=== PATIENT | female | born 1965 | race African-American/Black ===

== ENCOUNTER 2017-05-30 13:34 | Emergency (ER) | payer OTHER ==
[2017-05-30 13:37] VITALS: BP 134/82; PULSE 77; TEMP 98; BMI 32.1
[2017-05-30] MEDS ORDERED: SODIUM CHLORIDE 1,000 ML IV STA (14:05)
[2017-05-30] MEDS ORDERED: KETOROLAC TROMETHAMINE 30 MG/1 ML VIAL IVPUSH ONE (14:05)
--- NOTE | 2017-05-30 14:13 | PDOC ---
History of Present Illness - General Chief Complaint: Pain Stated Complaint: LT SIDE PAIN Time Seen by Provider: 05/30/17 13:41 History Source: Patient - History of Present Illness Timing/Duration: reports: constant, getting worse Quality: reports: severe Abdominal Pain Onset Location: reports: flank Pain Radiation: reports: no radiation Past History - Past Medical History Allergies/Adverse Reactions: Allergies Allergy/AdvReac Type Severity Reaction Status Date / Time peanut Allergy Verified 05/30/17 13:38 shellfish derived Allergy Verified 05/30/17 13:38 Home Medications: Ambulatory Orders Ibuprofen [Motrin -] 600 mg PO QID #28 tablet 05/30/17 Tramadol HCl 50 mg PO Q6H #10 tablet MDD 200mg 05/30/17 Kidney Stones: Yes - Suicide/Smoking/Psychosocial Hx Smoking Status: No Smoking History: Never smoked Number of Cigarettes Smoked Daily: 0 Hx Alcohol Use: No Drug/Substance Use Hx: No Substance Use Type: None Review of Systems - Review of Systems Constitutional: No: Chills, Fever ABD/GI: No: Nausea, Vomiting : Yes: Flank Pain. No: Dysuria, Hematuria *Physical Exam - Vital Signs Last Vital Signs Temp Pulse Resp BP Pulse Ox 98.0 F 77 20 134/82 100 05/30/17 13:34 05/30/17 13:34 05/30/17 13:34 05/30/17 13:34 05/30/17 13:34 - Physical Exam General Appearance: Yes: Appropriately Dressed. No: Apparent Distress HEENT: positive: Normal Voice Neck: positive: Supple Respiratory/Chest: negative: Respiratory Distress Gastrointestinal/Abdominal: positive: Normal Bowel Sounds, Tender (to L flank, no overt CVST, no tenderness to abd otherwise), Soft. negative: Distended, Guarding, Rebound Musculoskeletal: negative: CVA Tenderness Extremity: positive: Normal Inspection Integumentary: positive: Dry, Warm Neurologic: positive: Fully Oriented, Alert, Normal Mood/Affect ED Treatment Course - LABORATORY CBC & Chemistry Diagram: 05/30/17 14:20 05/30/17 14:18 - RADIOLOGY Radiology Studies Ordered: Category Date Time Status ABDOMEN & PELVIS CT W/O CONTR [CT] Stat CT Scan 05/30/17 14:05 Ordered Medical Decision Making - Medical Decision Making 05/30/17 14:11 82-year-old female, history of kidney stones, no surgeries, here with L lower back pain radiating to L flank that started yesterday and is severe. No dysuria , hematuria, nausea, vomiting, fever or chills. States current symptoms similar to previous stone. See exam Renal colic -pain control -IVF -labs -CT 05/30/17 15:56 CT read as 4 mm non-obstructing right renal stone, however no stone seen to left renal collecting system or ureter. Pt improved w/ meds. L flank pain possibly MSK in nature as no stone seen on the L. Labs and UA unremarkable. Dc w / pain control and PMD f/u 05/30/17 15:56 05/30/17 16:07 05/30/17 16:09 *DC/Admit/Observation/Transfer Diagnosis at time of Disposition: Left flank pain - Discharge Dispostion Disposition: HOME Condition at time of disposition: Improved - Prescriptions Prescriptions: Ibuprofen [Motrin -] 600 mg PO QID #28 tablet Tramadol HCl 50 mg PO Q6H #10 tablet MDD 200mg - Referrals Referrals: Sendy Galeas [Primary Care Provider] - - Patient Instructions Additional Instructions: The cause of your left side pain is unclear at this time, but could possibly be muscular. The CT did not show any stones on your left side. There is only a 4 mm stone in your right kidney, which given its location, should not be causing pain. Your labs and urine were normal. Take medication as prescribed for pain as needed and follow-up with your PMD
[2017-05-30] MEDS ORDERED: KETOROLAC TROMETHAMINE 30 MG/1 ML VIAL ONE (14:23)
[2017-05-30 14:27] LABS: BASOPHIL 1.2 % (0-2.0); EOSINOPHIL 5.3 % (0-4.5); MCH 27.6 pg (25.7-33.7); MCHC 33.7 g/dl (32.0-36.0); MEAN CELL VOLUME 81.8 fl (80-96); MEAN PLT VOLUME 7.6 fl (7.5-11.1); NEUTROPHILS 66.8 % (42.8-82.8); PLATELET COUNT 330 K/MM3 (134-434); RDW 13.1 % (11.6-15.6)
[2017-05-30 14:28] LABS: URINE APPEARANCE CLEAR; URINE BILIRUBIN NEGATIVE (NEGATIVE); URINE BLOOD 1+ (NEGATIVE); URINE COLOR LTYELLOW; URINE GLUCOSE (UA) NEGATIVE (NEGATIVE); URINE KETONE NEGATIVE (NEGATIVE); URINE NITRITE NEGATIVE (NEGATIVE); URINE PROTEIN NEGATIVE (NEGATIVE); URINE UROBILINOGEN NEGATIVE mg/dL (0.2-1.0)
[2017-05-30 14:30] LABS: URINE MUCUS RARE; URINE RBC <1 /hpf (0-3); URINE WBC 1 /hpf (3-5)
[2017-05-30 14:54] LABS: ALBUMIN 3.7 g/dl (3.4-5.0); ALK PHOS 91 U/L (45-117); ANION GAP 5 (8-16); BILIRUBIN,TOTAL 0.4 mg/dL (0.2-1.0); CALCIUM 9.4 mg/dL (8.5-10.1); CO2 31 mmol/L (21-32); CREATININE 0.4 mg/dL (0.55-1.02); GLUCOSE,RANDOM 107 mg/dL (74-106); SGOT/AST 13 U/L (15-37); SGPT/ALT 17 U/L (12-78); TOT PROT 7.6 g/dl (6.4-8.2)
[2017-05-30] MEDS ORDERED: traMADol HCL 50 MG TABLET ONE (16:05)
[2017-05-30] MEDS ORDERED: traMADol HCL 50 MG TABLET PO ONE (16:07)
[2017-05-30 17:29] LABS: URINE LEUK ESTERASE Negative (NEGATIVE)
== END 2017-05-30 16:03 | disposition home or self-care (01) ==
LOC: JER 13:34
PROC: 3E0333Z Introduction of Anti-inflammatory into Peripheral Vein, Percutaneous Approach (ICD-10-PCS; principal; 2017-05-30)
DX: R10.32 Left lower quadrant pain (principal); Z87.442 Personal history of urinary calculi
CPT/HCPCS: 36415; 74176-TC; 80053; 81003; 81015; 85025; 96374; 99282-25

== ENCOUNTER 2019-05-30 13:35 | Emergency (ER) | payer OTHER ==
[2019-05-30 13:57] VITALS: BP 165/96; PULSE 57; TEMP 98.7; BMI 35.9
[2019-05-30 14:26] LABS: EPITHELIAL CELLS FEW /hpf
[2019-05-30] MEDS ORDERED: KETOROLAC TROMETHAMINE 30 MG/1 ML VIAL IVPUSH ONE (15:15)
[2019-05-30] MEDS ORDERED: KETOROLAC TROMETHAMINE 30 MG/1 ML VIAL IM ONE (15:19)
[2019-05-30] MEDS ORDERED: KETOROLAC TROMETHAMINE 30 MG/1 ML VIAL ONE (15:21)
--- NOTE | 2019-05-30 15:49 | PDOC ---
History of Present Illness - General Chief Complaint: Pain Stated Complaint: LEFT FLANK PAIN 1 DAY Time Seen by Provider: 05/30/19 13:50 - History of Present Illness Initial Comments: Ms. Rich is a 54 y/o female with PMH of kidney stones and HTN, presenting today with left sided flank pain that started yesterday. Describes the pain as sharp. Reports that she feels this is similar to the last time she had kidney stones 4 days ago. Reports left flank pain that does not radiate anywhere else. Denies fever, chills, dysuria, hematuria, frequency. PMH: HTN, kidney stones Meds: atenolol Past History - Past Medical History Allergies/Adverse Reactions: Allergies Allergy/AdvReac Type Severity Reaction Status Date / Time peanut Allergy Verified 05/30/19 13:38 shellfish derived Allergy Verified 05/30/19 13:38 Home Medications: Ambulatory Orders Aspirin 81 mg PO DAILY 05/30/19 Atenolol [Tenormin -] 25 mg PO DAILY 05/30/19 Cholecalciferol (Vitamin D3) [Vitamin D3] 3,000 unit PO DAILY 05/30/19 Iron Polysaccharide Complex [Poly-Iron] 150 mg PO DAILY 05/30/19 Tramadol HCl 50 mg PO PRN 05/30/19 COPD: No HTN: Yes Kidney Stones: Yes - Psycho Social/Smoking Cessation Hx Smoking Status: No Smoking History: Never smoked Number of Cigarettes Smoked Daily: 0 Information on smoking cessation initiated: No Hx Alcohol Use: No Drug/Substance Use Hx: No Substance Use Type: None Review of Systems - Review of Systems Able to Perform ROS?: Yes Is the patient limited Swazi proficient: Yes Constitutional: No: Chills, Fever, Malaise, Night Sweats HEENTM: No: Recent change in vision, Throat Swelling Respiratory: No: Cough, Shortness of Breath Cardiac (ROS): No: Chest Pain, Syncope ABD/GI: No: Abdominal Distended, Nausea, Vomiting : Yes: Flank Pain. No: Burning, Dysuria, Discharge, Frequency, Hematuria, Incontinence, Urgency Musculoskeletal: No: Back Pain, Muscle Pain, Muscle Weakness Integumentary: No: Bruising, Erythema Neurological: No: Headache, Weakness Psychiatric: No: Frequent Crying, Sleep Pattern Change Endocrine: No: Excessive Sweating, Intolerance to Cold, Intolerance to Heat Hematologic/Lymphatic: No: Anemia, Blood Clots *Physical Exam - Vital Signs Last Vital Signs Temp Pulse Resp BP Pulse Ox 98.7 F 57 L 16 165/96 97 05/30/19 13:38 05/30/19 13:38 05/30/19 13:38 05/30/19 13:38 05/30/19 13:38 - Physical Exam Comments: GENERAL: Awake, alert, and oriented to person/place/time, in no acute distress_ HEAD: No signs of trauma, normocephalic, atraumatic _ EYES: PERRLA, EOMI, sclera anicteric, conjunctiva clear_ ENT: Hearing grossly normal, nares patent, oropharynx clear without exudates. No uvular deviation. Moist mucosa_ NECK: Normal ROM, supple, no lymphadenopathy, JVD, or masses_ LUNGS: No distress, speaks in full sentences, clear to auscultation bilaterally _ HEART: Regular rate and rhythm, normal S1 and S2, no murmurs appreciated, peripheral pulses normal and equal bilaterally._ ABDOMEN: Soft, nontender, normoactive bowel sounds. No guarding, no rebound. No masses_ BACK: Mild TTP left flank, no CVA tenderness. EXTREMITIES: Normal inspection, Normal range of motion, no edema. No clubbing or cyanosis_ NEUROLOGICAL: Cranial nerves II through XII grossly intact. Normal speech, normal gait, no focal sensorimotor deficits _ SKIN: Warm, Dry, normal turgor, no rashes or lesions noted_ ED Treatment Course - ADDITIONAL ORDERS Additional order review: Laboratory Results 05/30/19 14:10 Urine Color Yellow Urine Appearance Clear Urine pH 6.0 Urine Protein Negative Urine Glucose (UA) Negative Urine Ketones Negative Urine Blood Trace-intact Urine Nitrite Negative Urine Bilirubin Negative Urine Urobilinogen 0.2 Ur Leukocyte Esterase Negative Urine RBC 2-5 Urine WBC 0-2 Ur Transition Epith Cell Few - Medications Given in the ED: ED Medications Discontinued Medications Generic Name Dose Route Start Last Admin Trade Name Freq PRN Reason Stop Dose Admin Ketorolac Tromethamine 30 mg 05/30/19 15:15 05/30/19 15:20 Toradol Injection - IVPUSH 05/30/19 15:16 Not Given ONCE ONE Ketorolac Tromethamine 30 mg 05/30/19 15:19 05/30/19 15:24 Toradol Injection - IM 05/30/19 15:20 30 mg ONCE ONE Administration Medical Decision Making - Medical Decision Making 54F with hx of kidney stones and HTN. Here for L flank pain for two days. Denies fever or systemic illness or urinary symptoms. Obtain UA/UC and CT spiral. Toradol for pain relief. 05/30/19 15:55 CT shows minimal right sided nephrolithiasis. 05/30/19 1640 Patient reports improved pain. Plan to d/c home with pcp f/u, motrin for pain relief. Discharge - Discharge Information Problems reviewed: Yes Clinical Impression/Diagnosis: Muscle strain Condition: Stable - Follow up/Referral Referrals: Sendy Galeas [Primary Care Provider] - - Patient Discharge Instructions Additional Instructions: Please take Motrin over the counter for pain relief. Follow the instructions on the package. Take 400 mg every 6 hours for the first three days, and then as needed afterwards. Please make an appointment to follow up with your primary care physician. If you experience any new, worsening, or concerning symptoms, such as pain with urination or blood in the urine, severe nausea/ vomiting, new or different flank pain, fever, or any other concerns, please return to the emergency department. - Post Discharge Activity
--- NOTE | 2019-05-30 18:09 | PDOC ---
Documentation entered by Hallie Nur SCRIBE, acting as scribe for Portillo Barrios MD. Portillo Barrios MD: This documentation has been prepared by the Boom maier Aiswarya, SCRIBE, under my direction and personally reviewed by me in its entirety. I confirm that the documentation accurately reflects all work, treatment, procedures, and medical decision making performed by me. Attending Attestation - Resident Resident Name: Elton Hanna - ED Attending Attestation I have performed the following: I have examined & evaluated the patient, The case was reviewed & discussed with the resident, I agree w/resident's findings & plan - HPI HPI: 05/30/19 16:29 The patient is a 54 year old female, with a significant PMH of kidney stone , who presents to the emergency department with back pain that began yesterday . The patient states she bent down to reach something in her kitchen when she felt a sudden sharp pain located to the left mid back/ flank.Patient notes pain progressively worsened today and is exacerbated with movement, mild relief with Tramadol. She states pain feel likes her renal colic pain in the past. The patient denies chest pain, shortness of breath, headache and dizziness. Denies fever, chills, nausea, vomit, diarrhea and constipation. Denies dysuria, frequency, urgency and hematuria. Allergies: NKDA Past surgical history: None reported Social history: None reported PCP: None reported - Physicial Exam PE: 05/30/19 16:29 GENERAL: The patient is awake, alert, and fully oriented, in no acute distress. HEAD: Normal with no signs of trauma. LUNGS: Breath sounds equal, clear to auscultation bilaterally. No wheeze/ crackles. HEART: Regular rate and rhythm, normal S1 and S2 without murmur or rub. ABDOMEN: Soft/nontender/nondistended. BS wnl. No guarding or rebound. No palpable masses. No hepatosplenomegaly. EXTREMITIES: +reproducible discomfort over intercostal space of the left posterior rib. No CVA tenderness NEUROLOGICAL: Cranial nerves II through XII grossly intact. Normal speech, normal gait. PSYCH: Normal mood, normal affect. SKIN: Warm, Dry, normal turgor, no rashes or lesions noted. - Medical Decision Making 05/30/19 15:49 A portion of this note was documented by scribe services under my direction. I have reviewed the details of the note, within reason, and agree with the documentation with the following case summary and management plan written by me. 54-year-old female with history of kidney stones presents with left mid back/ flank discomfort since yesterday. Patient bent down to nut picker something on the floor, felt a twinge in her left mid back, since then had mild discomfort which has progressed to a more sharp pain, constant and positional in nature, no associated cardiopulmonary or GI or complaints. Took tramadol with some relief, presents for evaluation because the pain has become comparable to her renal colic pain in the past. Vital signs stable Exam localizes superficially to the musculoskeletal region of the left mid back , no CVA tenderness, abdomen benign 54-year-old female with likely mid back strain, less likely consistent with acute kidney stone or infection. Urinalysis reveals insignificant white and red blood cells CT of the abdomen and pelvis, on my preliminary review, shows no evidence of ureterolithiasis, some right nephrolithiasis. Trial of Toradol, reassess and disposition accordingly 05/30/19 18:08 feels much better. agrees with d/c plan and understands return criteria.
== END 2019-05-30 16:54 | disposition home or self-care (01) ==
LOC: FER 13:35
PROC: 3E0233Z Introduction of Anti-inflammatory into Muscle, Percutaneous Approach (ICD-10-PCS; principal; 2019-05-30)
DX: S39.011A Strain of muscle, fascia and tendon of abdomen, initial encounter (principal); X58.XXXA Exposure to other specified factors, initial encounter; Y93.89 Activity, other specified; Y92.89 Other specified places as the place of occurrence of the external cause; I10 Essential (primary) hypertension; N20.0 Calculus of kidney
CPT/HCPCS: 74176-TC; 81003; 81015; 87086; 96372; 99283-25